=== PATIENT | male | born 1955 | race Caucasian/White ===

== ENCOUNTER 2018-08-14 06:21 | Inpatient (IN) ==
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
--- NOTE | 2018-07-08 12:13 | PAT Medication Instructions ---
Medication Instructions Date of Service July 08, 2018 Home Medications bupropion HCl [Wellbutrin XL] 150 mg PO QAM allopurinol 100 mg PO QAM hydrochlorothiazide 25 mg PO QAM hydrocodone-acetaminophen 1 tab PO Q6H PRN methylphenidate HCl 10 mg PO TID metoprolol tartrate 25 mg PO BID ropinirole [Requip] 0.5 mg PO HS PRN trazodone 50 mg PO HS Hold 24 hours prior to surgery ropinirole [Requip] 0.5 mg PO HS PRN Hold the morning of surgery hydrochlorothiazide 25 mg PO QAM methylphenidate HCl 10 mg PO TID Take morning of surgery Take the following medication the morning of surgery with a sip of water, OTHERWISE NOTHING TO EAT OR DRINK AFTER MIDNIGHT: bupropion HCl [Wellbutrin XL] 150 mg PO QAM allopurinol 100 mg PO QAM hydrocodone-acetaminophen 1 tab PO Q6H PRN (okay to take up to 4 hours prior to surgery if needed) metoprolol tartrate 25 mg PO BID Take evening before surgery hydrocodone-acetaminophen 1 tab PO Q6H PRN (if needed) methylphenidate HCl 10 mg PO TID metoprolol tartrate 25 mg PO BID trazodone 50 mg PO HS Other Notes If you have any questions please call us at [phone] or [phone] or [phone] or [phone]
--- NOTE | 2018-07-08 13:03 | XRay Report ---
XR chest Pre-admission PA/Lat CLINICAL HISTORY: Preoperative chest COMPARISON STUDY: 02/14/2010 FINDINGS: The cardiac and mediastinal contours remain stable. There are persistent areas of linear sc arring within the left midlung zone. There is possible bullous emphysema. There is no acute parenchym al consolidation. There are no pleural effusions. There is no failure.[ IMPRESSION: Stable scarring. No acute findings. Electronically signed by: Bert Armas M.D. 07/08/2018 1:02 PM
[2018-07-08 14:00] LABS: Basophils # (auto) 0.03 K/uL (0-0.2); Basophils % (auto) 0.3 %; Eosinophils # (auto) 0.34 K/uL (0-0.5); Eosinophils % (auto) 3.6 %; Hematocrit (blood only) 44.1 % (42-52); Hemoglobin 15.2 g/dL (14.0-18.0); Immature Granulocytes # (auto) 0.02 K/uL (0.00-0.02); Immature Granulocytes % (auto) 0.2 %; Lymphocytes # (auto) 2.62 K/uL (1.2-3.4); Lymphocytes % (auto) 27.9 %; Mean Corpuscular Hgb Conc 34.5 g/dL (32-36); Mean Platelet Volume 9.9 fL (7.4-10.4); Monocytes # (auto) 0.68 K/uL (0.11-0.59); Monocytes % (auto) 7.2 %; Neutrophils % (auto) 60.8 %; Platelet Count 216 K/uL (130-400); RDW Coefficient of Variation 12.6 % (11.5-14.5); RDW Standard Deviation 40.3 fL (36.4-46.3); Red Blood Count 5.13 M/uL (4.7-6.1); White Blood Count 9.39 K/uL (4.8-10.8)
[2018-07-08 14:08] LABS: Partial Thromboplastin Ratio 1.1; Partial Thromboplastin Time 27.9 Seconds (21.0-31.0); Prothrombin Time 10.1 Seconds (9.0-12.0)
[2018-07-08 14:23] LABS: BUN Creatinine Ratio 13.3 (10-20); C Reactive Protein 1.27 mg/dl (0-0.29); Calcium 9.3 mg/dl (8.5-10.1); Creatinine Clr Calc Pharmacy 90.5 ml/min; Est GFR (African American) 79.2; Est GFR (Non-African American) 68.3; Potassium 3.9 mmol/L (3.5-5.1)
--- NOTE | 2018-08-10 14:11 | History and Physical Report ---
DATE OF ADMISSION: 08/14/2018 CHIEF COMPLAINT: Left knee pain and discomfort. HISTORY OF PRESENT ILLNESS: A 63-year-old gentleman, now a little over 8 years out from right knee replacement, presents for surgical treatment to the left knee. He has had a fairly long history of left knee pain and discomfort that has gradually gotten worse over time. We have tried injection treatment, but it had only given him about a week of relief. He has pain all the time. It is worse with the more he walks. He describes global pain. He does get some swelling. His knee gives out intermittently. He is happy with his right knee and would like to have his left knee replaced. PAST MEDICAL HISTORY: Significant for 1. Hypertension. 2. Spontaneous pneumothorax in 1994. 3. Anxiety. 4. Obesity with a BMI of 41. PAST SURGICAL HISTORY: Previous surgeries include: 1. Lung surgery for pneumothorax in 1994. 2. Right total knee replacement in 2009. 3. Right hand repair for trauma. ALLERGIES: None. MEDICATIONS: Current medicines include 1. Bupropion 200 mg. 2. Hydrochlorothiazide 50 mg. 3. Metoprolol 25 mg. 4. Mobic 15 mg. 5. Ritalin 20 mg. 6. Hydrocodone 7.5/325. 7. Ropinirole 1 mg a day. SOCIAL HISTORY: A 63-year-old male, lives by himself. He is . He does not smoke. FAMILY HISTORY: Noncontributory. REVIEW OF SYSTEMS: Negative for diabetes, neurologic problem, vascular problem, bleeding disorders. No chest pain, no shortness of breath. No history of DVT or PE. PHYSICAL EXAMINATION: GENERAL: Examination reveals a healthy and pleasant middle-aged male, looks to be in pretty good health. HEENT: Benign. NECK: Supple. No lymphadenopathy. LUNGS: Clear to auscultation. CARDIOVASCULAR: Heart has a regular rate and rhythm. GASTROINTESTINAL: Abdomen is soft, nontender, nondistended. EXTREMITIES: Grossly neurovascularly intact except as follows: Examination of the left knee reveals patient walks with a significant antalgic gait. He has slight varus alignment to his knee, moderate size knee effusion. Tender over the medial joint line. Range of motion is 5 to 125 degrees. He is neurologically intact. Vascular status is intact. ACL is intact. IMAGING: X-rays of left knee reviewed. It shows advanced medial compartment DJD. He has complete loss of his medial joint space. He does have some patellofemoral as well as some lateral compartment disease with stress testing. ASSESSMENT: A 63-year-old male, 8-1/2 years out from right knee replacement, with advanced left knee degenerative joint disease. Very temporary response to injection treatment, he would like to proceed with left knee replacement. Based on his x-rays, I do not think he is a good candidate for partial knee replacement. PLAN: We will take him to the operating room and do a left total knee replacement. The risks and benefits of this procedure explained to the patient and include but not limited to DVT, PE, , infection, neurological injury, vascular injury, bleeding problem, pain, limited range of motion, stiffness, failure to relieve symptoms, incomplete relief of symptoms, need for further surgery in the future, fracture, leg length inequality, nerve palsy, etc. The patient understands and desires to proceed. Informed consent was obtained. He does live by himself, and we talked to him about his social situation. He is going to call the social media senior associate preoperative and develop plan for discharge. We did talk to him about holding his Mobic 10 days preop and taking his metoprolol/atenolol on the morning of surgery. He should limit his hydrocodone intake and will use something similar to that for postop pain control.
[~2018-08-14 06:21] MED LIST: ACETAMINOPHEN 500 MG TAB PO SCH; BUPIVACAINE LIPOSOME/PF 266 MG, BUPIVACAINE/EPINEPHRINE 50 ML, SODIUM CHLORIDE 0.9% 30 ... INFIL SCH; CEFAZOLIN 3000MG 65 ML IV SCH; FAMOTIDINE 20 MG TAB PO SCH; GABAPENTIN 300 MG x 2 PO SCH; LR 60ML/HR IV SCH; METOCLOPRAMIDE HCL 10 MG TABLET PO SCH; SCOPOLAMINE 1.5 MG TDSY TD SCH
[2018-08-14] MEDS ORDERED: TRANEXAMIC ACID 1,000 MG **IV Intra-op IV SCH (06:30)
[2018-08-14] MEDS ORDERED: BUPIVACAINE 0.5 % 5 MG/1 ML PF 10ML VIAL ONE (06:38)
[2018-08-14] MEDS ORDERED: ROPIVACAINE 0.5% 5 MG/ML 30 ML VIAL ONE (06:38)
[2018-08-14] MEDS ORDERED: EPINEPHrine INJ 1 MG/ML AMP ONE ×2 (06:38→09:12)
--- NOTE | 2018-08-14 07:00 | History & Physical Bridge Note ---
Date of Service August 14, 2018 History & Physical Bridge Note I have examined the patient, reviewed the History & Physical and in the interval since the performance of the History & Physical I have noted the following changes of clinical significance: no changes noted
[2018-08-14] MEDS: LR 500ML BOLUS, THEN 15ML/HR IV SCH ×7 (07:20→19:20)
[2018-08-14] MEDS ORDERED: fentaNYL citrate 100 MCG/2 ML VIAL IV PRN (07:27)
[2018-08-14] MEDS ORDERED: ATROPINE SULFATE 0.1 MG/ML 10ML SYR IV PRN (07:27)
[2018-08-14] MEDS ORDERED: ONDANSETRON INJ 2 MG/ML 2 ML VIAL IV PRN ×2 (07:27→12:59)
[2018-08-14] MEDS ORDERED: PHENYLEPHRINE 100MCG/ML 5ML SYR IV PRN (07:27)
[2018-08-14] MEDS ORDERED: MEPERIDINE HCL 25 MG/ML CARP IV PRN (07:27)
[2018-08-14] MEDS ORDERED: LABETALOL HCL IV 5 MG/ML 20ML IV PRN (07:27)
[2018-08-14] MEDS ORDERED: HYDROmorphone INJ 1 MG/ML SYRINGE IV PRN (07:27)
[2018-08-14] MEDS ORDERED: ePHEDrine sulfate 50 MG/ML AMP IV PRN (07:27)
[2018-08-14] MEDS ORDERED: MIDAZOLAM HCL 1 MG/ML 2ML VIAL ONE ×2 (08:03→09:40)
[2018-08-14] MEDS ORDERED: fentaNYL citrate 100 MCG/2 ML VIAL ONE ×3 (08:03→10:48)
[2018-08-14] MEDS ORDERED: SODIUM CHLORIDE 0.9% PF 50 ML VIAL ONE (09:10)
[2018-08-14] MEDS ORDERED: BACITRACIN INJ 50,000 UNIT VIAL ONE (09:10)
[2018-08-14] MEDS ORDERED: BUPIVACAINE 0.25% 30 ML VIAL ONE (09:11)
[2018-08-14] MEDS ORDERED: BUPIVACAINE LIPOSOME 1.3% 266 MG/20 ML VIAL INFIL ONE (09:11)
[2018-08-14] MEDS ORDERED: VANCOMYCIN HCL 1000MG/20ML VIAL ONE (09:12)
[2018-08-14] MEDS ORDERED: PROPOFOL IV EMULSION 10 MG/ML 20 ML VIAL IV ONE ×2 (09:44→10:19)
[2018-08-14] MEDS ORDERED: LIDOCAINE HCL 2% 2 ML VIAL/AMP(20MG/ML) INFIL ONE (09:44)
[2018-08-14] MEDS ORDERED: ONDANSETRON INJ 2 MG/ML 2 ML VIAL ONE (09:44)
--- NOTE | 2018-08-14 11:29 | Post Operative Brief Note ---
Immediate Post Op Note v1 Date of Surgery August 14, 2018 Pre & Post Diagnosis Operation Date: 08/14/18 09:05 Pre-Op Diagnosis: Left Knee Degenerative Joint Disease, Knee pain Post-Op Diagnosis: Left Knee Degenerative Joint Disease, Knee pain Procedure Operation Date: 08/14/18 09:05 Actual Procedures p Left Total Knee Replacement(Left) - Bharath Harrison MD Surgeon Bharath Harrison MD Gravity Meter Operator Noris, PAC Estimated Blood Loss 50 Findings Consistent with Post-Op Diagnosis Fluids 1500 cc Specimens Left Knee Drains Grigsby Catheter Anesthesia Type Spinal MAC Complications none Disposition Accompanied Patient To Recovery: No Disposition: Recovery Room
--- NOTE | 2018-08-14 12:10 | XRay Report ---
XR knee LT 2V routine CLINICAL HISTORY: Surgical Post Op DEGENERATIVE ARTHRITIS COMPARISON: Outside radiograph dated 07/08/2018 DISCUSSION: There are postsurgical changes of a total left knee arthroplasty and patellar resurfacing . The femoral and tibial components appear well seated. Overlying skin nicolasa are evident. There is air within the soft tissues consistent with recent surgery. IMPRESSION: Postsurgical changes of a total left knee arthroplasty Electronically signed by: Bert Armas M.D. 08/14/2018 12:09 PM
--- NOTE | 2018-08-14 12:20 | Operative Report ---
DATE OF OPERATION: 08/14/2018 SURGEON: Bharath Harrison MD LAYER OUT: KHRIS Rubin PREOPERATIVE DIAGNOSIS: Left knee degenerative joint disease. POSTOPERATIVE DIAGNOSIS: Left knee degenerative joint disease. PROCEDURE PERFORMED: Left cemented posterior stabilized total knee arthroplasty. COMPLICATIONS: None. ESTIMATED BLOOD LOSS: 50 mL. FLUID REPLACEMENT: 1500 mL crystalloid fluid replacement. TOURNIQUET TIME: 71 minutes at 300 mmHg. ANESTHESIA: Spinal with adductor canal block. DRAINS: None. SPECIMENS: Left knee sent for pathology. OPERATIVE INDICATIONS: The patient is a 63-year-old fairly active gentleman who has had a long history of knee problems. He underwent a right knee replacement about 8-1/2 years ago and has done well from this. Over the past several years, he has developed increased pain and discomfort in his left knee. He has been through extensive conservative treatment including medicines and injections which provided only temporary relief. X-rays showed medial compartment DJD. The patient elected to proceed with operative treatment. OPERATIVE FINDINGS: Operative findings revealed advanced grade 4 [id number] disease of the medial femoral condyle and medial tibial plateau. He has some focal grade 3 changes in the lateral side. Some moderate patellofemoral arthritis as well. He had a fairly large knee joint effusion with slight varus deformity to his knee. OPERATIVE IMPLANTS: Operative implants consisted of: 1. A Biomet Vanguard size 70 left posterior stabilized femoral component. 2. A Biomet size 75 tibial tray. 3. A 12 mm posterior stabilized polyethylene insert. 4. A 31 x 8 all poly patella. OPERATIVE PROCEDURE: The patient was taken to the operating room, identified and placed on the operating room table in supine position. All contact areas were appropriately padded. IV antibiotics provided by anesthesia team. A spinal anesthetic and adductor canal block had been provided in the holding area. Grigsby catheter was placed in sterile fashion. Left thigh tourniquet was then placed and the left lower extremity was then prepped and draped in usual sterile fashion. Left leg was elevated and exsanguinated with Esmarch and tourniquet was placed at 300 mmHg. An anterior approach of the left knee was then performed through a longitudinal incision centered over the patella. Sharp dissection was carried out through subcutaneous tissue down to the level of the extensor mechanism. A medial parapatellar arthrotomy incision was made. Some subperiosteal dissection was carried out medially. The fat pad resected from beneath the patellar tendon. Lateral patellofemoral ligament was released. The patella was everted and knee was flexed. The osteophytes were taken off the distal femur. The ACL and PCL were then released from the distal femur. The tibia subluxated anteriorly. The external tibial alignment jig was then placed in the anterior face of the tibia and adjusted 16 mm medially. Proximal tibial cut was made to remove about 2-3 mm of bone from the medial side. Tibia size was sized to a size 75. Attention was then drawn to the femur. The distal femur was entered with a sharp drill bit. Intramedullary canal was suctioned. A left 6-degree valgus cutting guide was placed. Distal femoral cutting block was pinned in place. Distal femoral cut was made to take an additional 3 mm of bone off the distal femur. The femur was then sized to a size 70. We did downsize this slightly. The AP cutting block was pinned parallel to the epicondylar axis, which was 6 degrees of external rotation. The anterior cut, anterior chamfer, posterior cut, posterior chamfer cuts were made. Box cutting guide was placed and adjusted slightly lateral and the box cut was made. The knee was flexed. The remnants of the medial and lateral menisci were excised. The osteophytes were taken off the posterior aspect of the femur. Trial femoral component was placed. Tibial tray was pinned in maximum external rotation and the drill and stem punch were used to create defect in proximal tibia for the tibial tray. The knee was then trialed and 12 mm insert fit most appropriately. Attention was then drawn to the patella. The patella was cleaned of all soft tissues. Patella thickness measured 22 mm in thickness, it was cut down to 14. It was sized to a size 31 patella. Lateral osteophyte was removed. Patella button was placed. Knee was taken through range of motion and patella tracked nicely with no thumbs test. Attention was then drawn toward placement of permanent components. All trial components were removed. A bone plug was placed in the distal femur to limit blood loss. A double batch of Palacos G cement was mixed. I did add an additional gram of vancomycin to the cement due to his history of hidradenitis and infected hair follicles. Of note, during the first cement preparation, the plant technical specialist forgot to add this second bottle of liquid, so we had to open up a new batch of cement in a new mixer and took an additional 10 minutes. A size 70 left posterior stabilized femoral component, size 75 tibial tray, 12 mm posterior stabilized polyethylene insert, and a 31 x 8 all poly patella then cemented in place. Knee was brought down into full extension until cement hardened. A final cement check was then performed. Pericapsular tissues were injected with a total of 100 mL of a combination of 20 mL of Exparel, 30 mL of normal saline, 50 mL of 0.25% Marcaine with epinephrine. The patient did receive 1 gram of tranexamic acid. The tourniquet was then let down for final tourniquet time of 71 minutes. Hemostasis was assured using electrocautery. Extensor mechanism was then closed with a combination of #1 PDS suture and #1 Vicryl suture in a [id number] fashion. Extensor mechanism was checked and found to be intact. Subcutaneous tissue was then closed with 2-0 Dexon suture in a buried interrupted fashion. Skin was closed with skin nicolasa. Leg was then cleaned and dried and a sterile dressing of Xeroform, 4 x 4's, sterile cast padding and Rosendo bandage were applied. The patient then transferred to the recovery room in stable condition. The patient tolerated the procedure well with no complications. All needle and sponge counts were correct at the end of the operation. I attest to the content of the Intraoperative Record and any orders documented therein. Any exception s are noted below.
--- NOTE | 2018-08-14 12:30 | Anesthesiology Progress Note ---
Date of Service August 14, 2018 Anesthesia Post Procedure Vital Signs Vital Signs: Temp Pulse Pulse Resp BP Pulse Ox 08/14/18 12:25 76 14 114/68 96 08/14/18 12:15 36.7 C 76 12 109/67 96 08/14/18 12:05 76 12 103/64 98 08/14/18 11:55 77 12 113/63 99 08/14/18 11:45 79 13 113/64 99 08/14/18 11:35 36.2 C L 80 14 110/69 98 08/14/18 07:35 36.7 C 71 20 128/92 95 Pain Intensity Left Knee: Pain Intensity: 0 Notes Mental Status: alert / awake / arousable Patient Amnestic to Procedure: Yes Nausea / Vomiting: adequately controlled Pain: adequately controlled Airway Patency, RR, SpO2: stable & adequate BP & HR: stable & adequate Hydration State: stable & adequate Neuraxial Anesthesia: was administered and sensory block is resolving Anesthetic Complications: no major complications apparent and Pt Satisfied with anesthetic care
[2018-08-14] MEDS ORDERED: METOCLOPRAMIDE HCL INJ 5 MG/ML 2 ML VIAL IV PRN (12:59)
[2018-08-14] MEDS ORDERED: BISACODYL 10 MG SUPP PR PRN (12:59)
[2018-08-14] MEDS ORDERED: HYDROmorphone INJ 0.5 MG/0.5 ML SYR IV PRN (12:59)
[2018-08-14] MEDS ORDERED: MAGNESIUM HYDROXIDE SUSP 30 ML UDC PO PRN (12:59)
[2018-08-14] MEDS ORDERED: TAMSULOSIN HCL 0.4 MG CAP PO PRN (12:59)
[2018-08-14] MEDS ORDERED: ALUMINUM/MAGNESIUM SUSP 30 ML UDC PO PRN (12:59)
[2018-08-14] MEDS ORDERED: ROPINIROLE HCL 0.25 MG TABLET PO PRN (12:59)
[2018-08-14] MEDS ORDERED: METHYLPHENIDATE HCL 10 MG TABLET PO SCH (14:00)
[2018-08-14] MEDS: SODIUM CHLORIDE 0.9% 1000ML 1,000 ML IV SCH ×2 (14:53→21:17)
[2018-08-14] MEDS: KETOROLAC 30 MG/ML VIAL IV SCH ×2 (14:53→19:31)
[2018-08-14] MEDS: ACETAMINOPHEN 500 MG TAB PO SCH ×2 (14:54→21:17)
[2018-08-14] MEDS ORDERED: INFLUENZA ADMINISTRATION CHARGE ONE (15:00)
[2018-08-14] MEDS ORDERED: INFLUENZA VIRUS QUAD VACCINE 0.5 ML SYR IM ONE (15:00)
[2018-08-14] MEDS: OXYCODONE HCL IR 5 MG TAB (IMMEDIATE RELEASE) PO PRN (16:12)
[2018-08-14] MEDS: CHECK SCOPOLAMINE PATCH PLACEMENT SCH (16:14)
[2018-08-14] MEDS ORDERED: Nursing to Pharmacy Communication ONE (17:06)
[2018-08-14] MEDS ORDERED: TRANEXAMIC ACID 1,000 MG in 0.9 % SODIUM CHLORIDE 100 ML IV SCH (17:30)
[2018-08-14] MEDS: CEFAZOLIN 2000MG 2,000 MG/15 ML SYR IV SCH (17:38)
[2018-08-14] MEDS: FERROUS GLUCONATE 324 MG TAB PO SCH (17:39)
[2018-08-14] MEDS: ASPIRIN 81 MG ECTAB PO SCH (21:17)
[2018-08-14] MEDS: DOCUSATE SODIUM 100 MG CAP PO SCH (21:17)
[2018-08-14] MEDS: TRAZODONE HCL 50 MG TAB PO SCH (21:17)
[2018-08-14] MEDS: METOPROLOL TARTRATE 25 MG TAB PO SCH (21:17)
[2018-08-14] MEDS: SENNA 8.6 MG TAB PO SCH (21:18)
[2018-08-14] MEDS: TAPENTADOL HCL ER 50 MG TABCR PO SCH (21:20)
--- NOTE | 2018-08-14 21:35 | Progress Note ---
DATE: 08/14/2018 SUBJECTIVE: A 63-year-old gentleman postop from a left knee replacement. He is doing pretty well. Not having much pain yet. Still pretty groggy from the surgery. OBJECTIVE: VITAL SIGNS: Temperature 36.3. Vital signs stable. PHYSICAL EXAMINATION: GENERAL: Reveals a pleasant, middle-aged male. He is lying in bed, looks quite comfortable. He is really pretty groggy and I have to arouse him, otherwise, he falls asleep. LUNGS: Clear to auscultation. HEART: Regular rate and rhythm. ABDOMEN: Soft, nontender, nondistended. EXTREMITIES: Grossly neurovascularly intact except as follows. Examination of the left leg reveals the leg to be well aligned. Dressing is clean, dry, and intact. He can dorsiflex and plantarflex his foot appropriately. He is neurologically intact. X-RAYS: X-ray of left knee from recovery room was reviewed. Shows cemented posterior stabilized total knee arthroplasty. Components looked to be in good position. No signs of problems. ASSESSMENT: A 63-year-old gentleman postop from a left knee replacement, doing pretty well. Pain is well controlled currently. PLAN: 1. DVT prophylaxis including thigh-high TEDs, SCDs, and aspirin twice daily. 2. PT/OT. Weight bear as tolerated. Left total knee protocol. 3. Pain control, doing pretty well with current pain regimen. 4. IV antibiotics x24 hours. 5. Disposition: He is hoping to be discharged to rehab. He lives by himself and will need some help. He will likely need either a rehab or retirement facility stay. We will get social media editor working on that in the morning.
[2018-08-15] MEDS: CEFAZOLIN 2000MG 2,000 MG/15 ML SYR IV SCH (02:46)
[2018-08-15] MEDS: KETOROLAC 30 MG/ML VIAL IV SCH ×4 (02:46→19:53)
[2018-08-15] MEDS: CHECK SCOPOLAMINE PATCH PLACEMENT SCH ×2 (02:47→07:45)
[2018-08-15] MEDS ORDERED: Nursing to Pharmacy Communication ONE (03:02)
[2018-08-15] MEDS: SODIUM CHLORIDE 0.9% 1000ML 1,000 ML IV SCH (04:05)
[2018-08-15] MEDS: METHYLPHENIDATE HCL 10 MG TABLET PO SCH ×3 (06:35→15:10)
[2018-08-15] MEDS: ACETAMINOPHEN 500 MG TAB PO SCH ×3 (07:46→23:49)
--- NOTE | 2018-08-15 07:53 | Progress Note ---
DATE: 08/15/2018 SUBJECTIVE: A 63-year-old gentleman postop day 1 from a left knee replacement. He is doing pretty well this morning. Pain is controlled. No chest pain or shortness of breath. Not feeling dizzy or lightheaded. OBJECTIVE: VITAL SIGNS: Temperature 36.6. Vital signs stable. GENERAL: Physical examination shows a pleasant, middle-aged male. Much more awake and alert this morning. EXTREMITIES: Examination of the left leg reveals the dressing to be clean, dry and intact. Calf is soft and supple. He can dorsiflex and plantarflex his foot appropriately. LABORATORY DATA: Labs are pending. ASSESSMENT: A 63-year-old gentleman postop day 1 from a left knee replacement, doing pretty well. His pain seems to be controlled. He is neurologically intact. PLAN: 1. DVT prophylaxis including thigh-high TEDs, SCDs, and aspirin twice a day. 2. PT/OT. Weight bear as tolerated. Left total knee protocol. 3. Pain control, doing well with current pain regimen. He has been on chronic narcotics which may make pain control bit more difficult. 4. Disposition: He is hoping to discharge to [facility] or likely [facility] facility depending on insurance approval. He lives by himself and will likely need some assistance for the first 2 weeks.
[2018-08-15 08:28] LABS: Hematocrit (blood only) 37.5 % (42-52); Hemoglobin 12.8 g/dL (14.0-18.0); Mean Corpuscular Hgb Conc 34.1 g/dL (32-36); Mean Corpuscular Volume 85.4 fL (80-100); Mean Platelet Volume 9.3 fL (7.4-10.4); Platelet Count 173 K/uL (130-400); RDW Coefficient of Variation 12.9 % (11.5-14.5); RDW Standard Deviation 39.8 fL (36.4-46.3); Red Blood Count 4.39 M/uL (4.7-6.1); White Blood Count 9.59 K/uL (4.8-10.8)
[2018-08-15] MEDS: TAPENTADOL HCL ER 50 MG TABCR PO SCH ×2 (08:47→20:00)
[2018-08-15] MEDS: FERROUS GLUCONATE 324 MG TAB PO SCH ×2 (08:47→17:12)
[2018-08-15] MEDS: BuPROPion XL 150 MG TABCR PO SCH (08:48)
[2018-08-15] MEDS: hydroCHLOROthiazide 25 MG TAB PO SCH (08:48)
[2018-08-15] MEDS: PANTOprazole 40 MG TAB PO SCH (08:48)
[2018-08-15] MEDS: METOPROLOL TARTRATE 25 MG TAB PO SCH ×2 (08:49→19:54)
[2018-08-15] MEDS: ASPIRIN 81 MG ECTAB PO SCH ×2 (08:49→19:56)
[2018-08-15] MEDS: MULTIVITAMIN TAB PO SCH (08:49)
[2018-08-15] MEDS: ALLOPURINOL 100 MG TAB PO SCH (08:49)
[2018-08-15] MEDS: DOCUSATE SODIUM 100 MG CAP PO SCH ×2 (08:49→19:55)
[2018-08-15 09:07] LABS: Calcium 8.1 mg/dl (8.5-10.1); Creatinine Clr Calc Pharmacy 98.7 ml/min; Est GFR (African American) 89.4; Est GFR (Non-African American) 77.1; Potassium 3.7 mmol/L (3.5-5.1)
--- NOTE | 2018-08-15 11:29 | Anesthesiology Progress Note ---
Date of Service August 15, 2018 Anesthesia Post Procedure Vital Signs Vital Signs: Temp Pulse Pulse Pulse Resp BP Pulse Ox 08/15/18 08:04 36.6 C 64 16 113/63 95 08/15/18 03:18 36.6 C 70 16 131/76 95 08/14/18 23:23 36.6 C 60 16 117/78 95 08/14/18 21:15 70 130/78 08/14/18 19:40 36.3 C L 55 L 16 125/75 94 08/14/18 15:38 36.4 C L 80 16 94/61 L 97 08/14/18 14:35 36.3 C L 72 16 127/83 08/14/18 13:38 36.5 C 76 17 110/72 95 08/14/18 13:09 36.5 C 73 17 116/72 96 08/14/18 12:35 36.6 C 79 16 103/68 96 08/14/18 12:25 76 14 114/68 96 08/14/18 12:15 36.7 C 76 12 109/67 96 08/14/18 12:05 76 12 103/64 98 08/14/18 11:55 77 12 113/63 99 08/14/18 11:45 79 13 113/64 99 08/14/18 11:35 36.2 C L 80 14 110/69 98 Pain Intensity Left Knee: Pain Intensity: 7 Notes Mental Status: alert / awake / arousable and participated in evaluation Patient Amnestic to Procedure: Yes Nausea / Vomiting: adequately controlled Pain: adequately controlled Airway Patency, RR, SpO2: stable & adequate Hydration State: stable & adequate Neuraxial Anesthesia: was administered and sensory block is resolving Anesthetic Complications: no major complications apparent and Pt Satisfied with anesthetic care
[2018-08-15] MEDS: SENNA 8.6 MG TAB PO SCH (19:55)
[2018-08-15] MEDS: TRAZODONE HCL 50 MG TAB PO SCH (19:56)
[2018-08-15] MEDS: OXYCODONE HCL IR 5 MG TAB (IMMEDIATE RELEASE) PO PRN (21:22)
[2018-08-16] MEDS: KETOROLAC 30 MG/ML VIAL IV SCH ×2 (01:16→07:07)
[2018-08-16] MEDS: OXYCODONE HCL IR 5 MG TAB (IMMEDIATE RELEASE) PO PRN ×5 (06:08→23:58)
[2018-08-16] MEDS: METHYLPHENIDATE HCL 10 MG TABLET PO SCH ×3 (06:08→15:24)
--- NOTE | 2018-08-16 07:40 | Progress Note ---
DATE: 08/16/2018 SUBJECTIVE: A 63-year-old gentleman postop day 2 from a left knee replacement. He is doing reasonably well. Pain has been reasonably well controlled. No chest pain or shortness of breath. Not feeling dizzy or lightheaded. OBJECTIVE: VITAL SIGNS: Temperature 36.8. Vital signs stable. GENERAL: Physical examination shows a pleasant, middle-aged male. He is lying in bed and doing heel prop. EXTREMITIES: Examination of the left leg reveals the dressing to be clean, dry and intact. Calf is soft and supple. He can dorsiflex and plantarflex his foot appropriately. ASSESSMENT: A 63-year-old gentleman postop day 2 from left knee replacement, doing reasonably well. PLAN: 1. DVT prophylaxis including thigh-high TEDs, SCDs, and aspirin twice a day. 2. PT/OT. Weight bear as tolerated. Left total knee protocol. 3. Pain control, doing okay with current pain regimen. 4. Disposition: Plan to discharge to [facility] or assisted facility depending on availability.
[2018-08-16] MEDS: ALLOPURINOL 100 MG TAB PO SCH (08:23)
[2018-08-16] MEDS: METOPROLOL TARTRATE 25 MG TAB PO SCH ×2 (08:23→20:43)
[2018-08-16] MEDS: TAPENTADOL HCL ER 50 MG TABCR PO SCH ×2 (08:23→20:44)
[2018-08-16] MEDS: FERROUS GLUCONATE 324 MG TAB PO SCH ×2 (08:23→18:34)
[2018-08-16] MEDS: ASPIRIN 81 MG ECTAB PO SCH ×2 (08:23→20:43)
[2018-08-16] MEDS: hydroCHLOROthiazide 25 MG TAB PO SCH (08:24)
[2018-08-16] MEDS: ACETAMINOPHEN 500 MG TAB PO SCH ×3 (08:24→23:59)
[2018-08-16] MEDS: DOCUSATE SODIUM 100 MG CAP PO SCH ×2 (08:24→20:43)
[2018-08-16] MEDS: BuPROPion XL 150 MG TABCR PO SCH (08:24)
[2018-08-16] MEDS: MULTIVITAMIN TAB PO SCH (08:25)
[2018-08-16] MEDS: PANTOprazole 40 MG TAB PO SCH (08:26)
[2018-08-16] MEDS: TRAZODONE HCL 50 MG TAB PO SCH (20:43)
[2018-08-16] MEDS: SENNA 8.6 MG TAB PO SCH (20:44)
[2018-08-17] MEDS: OXYCODONE HCL IR 5 MG TAB (IMMEDIATE RELEASE) PO PRN ×2 (04:05→08:02)
[2018-08-17] MEDS: METHYLPHENIDATE HCL 10 MG TABLET PO SCH ×2 (06:02→13:00)
[2018-08-17] MEDS: ACETAMINOPHEN 500 MG TAB PO SCH (08:05)
[2018-08-17] MEDS: TAPENTADOL HCL ER 50 MG TABCR PO SCH (08:08)
--- NOTE | 2018-08-17 08:37 | Progress Note ---
DATE: 08/17/2018 SUBJECTIVE: A 63-year-old gentleman status post a left knee replacement. He is now postop day 3. Doing reasonably well. Just waiting for placement. He would like a little bit better pain control. No chest pain or shortness of breath. OBJECTIVE: VITAL SIGNS: Temperature is 36.6. Vital signs stable. GENERAL: Physical examination shows a pleasant, middle-aged male. He is sitting up in his bedside chair, looks pretty comfortable. EXTREMITIES: Examination of the left leg reveals the dressing to be clean, dry, and intact. He can dorsiflex and plantarflex his foot appropriately. He is neurologically intact. ASSESSMENT: A 63-year-old gentleman postop day 3 from a left knee replacement, doing pretty well. Really just waiting for placement. A little bit difficulty with pain control due to his chronic narcotic use. PLAN: 1. DVT prophylaxis including thigh-high TEDs, SCDs, and aspirin twice a day. 2. PT/OT. Weight bear as tolerated. Left total knee protocol. 3. Pain control. We are going to change him from the oxycodone to Dilaudid. We will see how he does with that and he will need to take one or the other, but cannot take both. 4. Disposition: We are just waiting for bed availability at [facility].
[2018-08-17] MEDS: hydroCHLOROthiazide 25 MG TAB PO SCH (09:06)
[2018-08-17] MEDS: FERROUS GLUCONATE 324 MG TAB PO SCH (09:06)
[2018-08-17] MEDS: ALLOPURINOL 100 MG TAB PO SCH (09:06)
[2018-08-17] MEDS: DOCUSATE SODIUM 100 MG CAP PO SCH (09:06)
[2018-08-17] MEDS: METOPROLOL TARTRATE 25 MG TAB PO SCH (09:07)
[2018-08-17] MEDS: BuPROPion XL 150 MG TABCR PO SCH (09:07)
[2018-08-17] MEDS: MULTIVITAMIN TAB PO SCH (09:07)
[2018-08-17] MEDS: PANTOprazole 40 MG TAB PO SCH (09:07)
[2018-08-17] MEDS: ASPIRIN 81 MG ECTAB PO SCH (09:07)
[2018-08-17] MEDS: HYDROmorphone HCL 2 MG TAB PO PRN ×2 (10:12→14:12)
--- NOTE | 2018-08-20 15:18 | Discharge Summary ---
ADMITTING PHYSICIAN AND SURGEON: Dr. Bharath Harrison. ADMITTING DIAGNOSIS: Left knee degenerative joint disease. SURGERY PERFORMED: Left total knee arthroplasty. SECONDARY DIAGNOSES: Hypertension, spontaneous pneumothorax, anxiety, obesity. CONSULTS: None obtained. HISTORY AND PHYSICAL EXAMINATION: Well documented in the patient's chart. HOSPITAL COURSE: The patient was admitted on 08/14/2018 and underwent total knee arthroplasty, tolerated the procedure well. There were no complications. He was transferred to the PACU postoperatively and later to the orthopedic floor for further care. He was given Ancef for antibiotic prophylaxis, SVETLANA stockings, SCDs and aspirin for DVT prophylaxis. Hemoglobin, hematocrit and vital signs were monitored during his hospital stay and remained stable. Developed some mild postoperative anemia with a hemoglobin down to 12.8. Did not require blood transfusions. There were no complications. By postoperative day 3 he was tolerating a regular diet, pain was controlled with oral pain medicine. He is participating in physical therapy. On postop day 3, he was discharged home, set up with home health services, given printed discharge instructions including new prescriptions for extra strength Tylenol, aspirin, hydromorphone and oxycodone. Continue his home medications with the exception of hydrocodone/acetaminophen, which he was told to stop. Continue physical therapy, weightbearing as tolerated, VSETLANA stockings. Follow up approximately 2 weeks postoperatively or sooner if there are any problems or concerns.
== END 2018-08-17 15:05 | disposition home health service (06) | DRG 470 ==
LOC: ASU 06:21 → 3E 11:35

== ENCOUNTER 2021-12-19 18:42 | Inpatient (IN) ==
[2021-12-19] MEDS: SODIUM CHLORIDE 0.9% 500 ML IV SCH (19:26)
[2021-12-19 19:54] LABS: BUN Creatinine Ratio 16.5 (10-20); Bilirubin Direct 0.2 mg/dl (0-0.2); Calcium 9.4 mg/dl (8.5-10.1); Creatinine Clr Calc Pharmacy 81.4 ml/min; Est GFR (African American) 77.5 ml/min; Est GFR (Non-African American) 66.9 ml/min; Potassium 3.7 mmol/L (3.5-5.1); Total Protein 6.7 gm/dl (6.0-8.3)
[2021-12-19 19:56] LABS: Basophils # (auto) 0.02 K/uL (0-0.2); Basophils % (auto) 0.2 %; Eosinophils # (auto) 0.18 K/uL (0-0.5); Eosinophils % (auto) 2.1 %; Hemoglobin 13.9 g/dL (14.0-18.0); Immature Granulocytes # (auto) 0.01 K/uL (0.00-0.02); Immature Granulocytes % (auto) 0.1 %; Lymphocytes # (auto) 1.91 K/uL (1.2-3.4); Lymphocytes % (auto) 22.7 %; Mean Corpuscular Hgb Conc 33.9 g/dL (32-36); Mean Corpuscular Volume 85.4 fL (80-100); Mean Platelet Volume 10.2 fL (7.4-10.4); Monocytes # (auto) 0.51 K/uL (0.11-0.59); Monocytes % (auto) 6.1 %; Neutrophils # (auto) 5.79 K/uL (1.4-6.5); Neutrophils % (auto) 68.8 %; Platelet Count 219 K/uL (130-400); RDW Coefficient of Variation 13.3 % (11.5-14.5); RDW Standard Deviation 41.5 fL (36.4-46.3); White Blood Count 8.42 K/uL (4.8-10.8)
[2021-12-19] MEDS ORDERED: ONDANSETRON INJ 2 MG/ML 2 ML VIAL IV STA (20:01)
--- NOTE | 2021-12-19 20:07 | XRay Report ---
XR abdomen 2V w PA chest CLINICAL HISTORY: abd pain c diff TECHNIQUE: 2 views of the abdomen were obtained. A single view of the chest was obtained. Comparison: Comparison is made to chest radiograph 07/08/2018 FINDINGS: No lines and tubes are seen. The cardiomediastinal silhouette is normal. The lungs are clear. No evid ence of pleural effusion or pneumothorax. The osseous structures are grossly unremarkable. The bowel gas pattern is nonobstructive. A moderate amount of stool is noted within the large bowel. IMPRESSION: Nonobstructive bowel gas pattern. ACT 112: Negative or not required by law. Electronically signed by: Cornell Garces M.D. 12/19/2021 8:06 PM
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
[2021-12-19 22:04] LABS: Appearance Urine Clear (Clear); Bilirubin Urine Negative (Negative); Blood Urine Negative (Negative); Color Urine Yellow; Glucose Urine UA Negative (Negative); Ketones Urine Negative (Negative); Leukocyte Esterase Urine Negative (Negative); Nitrite Urine Negative (Negative); Protein Urine Negative (Negative); Specific Gravity Urine 1.008 (1.000-1.030); Urobilinogen Urine Negative (Negative); pH Urine 7.5 (4.5-7.5)
[2021-12-19] MEDS ORDERED: OPTIRAY 320 100ml IV ONE (22:14)
[2021-12-20] MEDS: SODIUM CHLORIDE 0.9% 500 ML IV SCH ×2 (00:03→10:51)
[2021-12-20] MEDS ORDERED: ACETAMINOPHEN 325 MG TAB PO PRN (04:12)
[2021-12-20] MEDS ORDERED: NITROGLYCERIN SL 0.4 MG/TAB TAB SL SCH (04:12)
[2021-12-20] MEDS ORDERED: NITROGLYCERIN SL 0.4 MG/TAB TAB SL PRN (04:12)
[2021-12-20] MEDS ORDERED: MoRPHine SULFATE 4 MG/ML 1 ML CARP\\VIAL IV PRN (04:12)
[2021-12-20] MEDS: D5W AND NSS 1,000 ML IV SCH ×2 (04:49→14:20)
[2021-12-20] MEDS ORDERED: traZODone HCL 50 MG TAB PO PRN (04:55)
--- NOTE | 2021-12-20 08:03 | History and Physical Report ---
DATE OF ADMISSION: . CHIEF COMPLAINT: Abdominal pain. HISTORY OF PRESENT ILLNESS: A 66-year-old male with past medical history significant for hyperlipidemia, gout, hypertension, obesity, restless legs syndrome, chronic pain, lumbar radiculopathy, psoriasis, depression, attention deficit disorder comes with abdominal pain. The patient states since last one and half months, he is having abdominal pain. Diagnosed of C. diff, and he had his first course of antibiotics for C. diff, then he restarted second course 11 days ago with vancomycin taper. He says he was also prescribed metronidazole, but he says he was told to take metronidazole if first antibiotic is not working. Initially, he had some blood in the stool, but that has resolved. He is having loose stools once daily, but he is having a lot of abdominal pain, bloating, nausea, and not able to eat anything. Loss of appetite. He says he lost about 50 pounds since last one and a half months. He thinks something else is going on, so he came to the hospital to get evaluated. Denies any fever or chills. No chest pain, no shortness of breath. Currently, no blood in stools. Normal bladder movements. No swelling in the legs. Ambulating okay. He has had some brain fog because he thinks he is not eating much. Has some dizziness. No headache, no blurred visions, no earache, no runny nose, no sore throat, no difficulty swallowing. Currently in the ER, he had an episode of bradycardia, but looks like monitor might not be picking up some of the beats. ALLERGIES: No known drug allergies. PAST MEDICAL HISTORY: As mentioned above. PAST SURGICAL HISTORY: Right total knee arthroplasty, cardiac stent placement, colonoscopy, EGDs, incision and drainage of perirectal abscess, tonsillectomy and adenoidectomy. MEDICATIONS: The patient is on allopurinol 300 mg p.o. daily, aspirin 81 mg p.o. daily, atorvastatin 80 mg p.o. daily, hydrochlorothiazide 25 mg p.o. a.m., hydrocodone/acetaminophen 1 tablet p.o. q. 8 hours p.r.n., isosorbide mononitrate 30 mg p.o. a.m., lactobacillus 1 tablet p.o. daily, lisinopril 2.5 mg p.o. daily, meloxicam 15 mg p.o. daily, methylphenidate 10 mg p.o. at 4:00 p.m., methylphenidate 20 mg daily a.m. and noon, metoprolol succinate 25 mg p.o. daily, nitroglycerin 0.4 mg sublingual p.r.n., Zofran 4 mg q. 8 hours p.r.n., trazodone 150 mg p.o. at bedtime p.r.n., vancomycin tapering course for recurrent C. diff. FAMILY HISTORY: Significant for father had skin cancer, sister has colon cancer, paternal grandmother had skin cancer. SOCIAL HISTORY: . Quit smoking, snuffs tobacco. Alcohol occasional. No drug use. REVIEW OF SYSTEMS: As per HPI. Rest of review of systems is negative. PHYSICAL EXAMINATION: GENERAL: The patient is of moderate build, not in acute distress. VITAL SIGNS: Temperature 36.5, pulse 60, respiratory rate 18, blood pressure 134/78, oxygen 93% on room air. HEENT: Pupils equal, round and reactive to light. Oral mucosa moist. NECK: No JVD, no neck masses. CARDIOVASCULAR: S1 and S2 heard. Regular rate and rhythm. No murmur, no gallop. RESPIRATORY SYSTEM: Normal AP diameter. No accessory muscle use. No wheezing, no crackles. ABDOMEN: Soft, diffuse tenderness present. Guarding present, no distention. CENTRAL NERVOUS SYSTEM: Cranial nerves II-XII grossly intact, nonfocal. EXTREMITIES: No edema, no erythema. LABORATORY DATA: WBC 8.4, hemoglobin 13.9, hematocrit 41, platelets 219. sodium 139, potassium 3.7, chloride 101, bicarbonate 31, BUN 19, creatinine 1.1, serum glucose 120. Lactate 0.8, calcium 9.4, magnesium 1.7, total bilirubin 1, direct bilirubin 0.2, AST 19, ALT 25, alkaline phosphatase 90. Troponin I high sensitivity 6, lipase 23. TSH 0.5. Urinalysis negative. SARS-CoV-2 RNA negative. IMAGING DATA: chest and abdominal x-ray, nonobstructive bowel gas pattern. CT of abdomen and pelvis with contrast, on preliminary report, no obvious acute findings. ASSESSMENT AND PLAN: This 66-year-old male presents with ongoing abdominal pain and poor appetite and recurrent C. diff. 1. Abdominal pain, poor appetite, lost weight, C. diff, on long vancomycin p.o. taper: Today is the 11th day of second course of vancomycin. CT of abdomen, no obvious findings,will follow final report. The patient says he is not eating much, abdominal pain is not getting better. Will consult GI. Will keep him on full liquid diet, IV fluids. Monitor in the hospital. 2. Bradycardia: heart rate down in the ER, but looks like monitor might not capturin beats.. EKG, sinus rhythm with frequent PVCs at a rate of 73, so we will monitor in the [facility] tele. If any concern, will consult Cardiology. 3. History of coronary artery disease, status post stent: On aspirin, statin, and metoprolol succinate and Imdur.. 4. History of gout: On allopurinol. 5. Hypertension: Continue hydrochlorothiazide, Imdur, lisinopril, and metoprolol. Monitor the blood pressure. 6. Attention deficit hyperactivity disorder: Continue methylphenidate. 7. Hyperlipidemia: Continue statin. 8. Deep venous thrombosis prophylaxis: Lovenox. DISPOSITION: Closely monitor in the [facility] tele. PT/OT prior to discharge. Social service to help with discharge planning. Job ID: [id number] HEALTH SYSTEMAngela
[2021-12-20] MEDS: allopurinoL 300 MG TAB PO SCH (08:21)
[2021-12-20] MEDS: ISOSORBIDE MONO EXTENDED REL 30 MG TABCR PO SCH (08:21)
[2021-12-20] MEDS: ASPIRIN 81 MG ECTAB PO SCH (08:21)
[2021-12-20] MEDS: METOPROLOL SUCC 25MG EXT REL TAB PO SCH (08:22)
[2021-12-20] MEDS: hydroCHLOROthiazide 25 MG TAB PO SCH (08:22)
[2021-12-20] MEDS: lisinopril 2.5 MG TAB PO SCH (08:22)
[2021-12-20] MEDS: RASPBERRY SYRUP 5 ML UDP PO SCH ×2 (08:23→20:34)
[2021-12-20] MEDS: ENOXAPARIN INJ 40 MG/0.4 ML SYR SQ SCH (08:23)
[2021-12-20] MEDS: VANCOMYCIN HCL 125 MG/2.5ML SOLN PO SCH ×2 (08:23→20:35)
[2021-12-20] MEDS: ADVANCED PROBIOTIC 1250 MG CAPSULE PO SCH (08:24)
[2021-12-20 08:49] LABS: Basophils # (auto) 0.02 K/uL (0-0.2); Basophils % (auto) 0.3 %; Eosinophils # (auto) 0.34 K/uL (0-0.5); Eosinophils % (auto) 4.3 %; Hematocrit (blood only) 41.4 % (42-52); Hemoglobin 14.2 g/dL (14.0-18.0); Immature Granulocytes # (auto) 0.01 K/uL (0.00-0.02); Immature Granulocytes % (auto) 0.1 %; Lymphocytes # (auto) 2.37 K/uL (1.2-3.4); Lymphocytes % (auto) 29.8 %; Mean Corpuscular Hemoglobin 30.3 pg (25-34); Mean Corpuscular Hgb Conc 34.3 g/dL (32-36); Mean Corpuscular Volume 88.5 fL (80-100); Monocytes % (auto) 6.3 %; Neutrophils # (auto) 4.71 K/uL (1.4-6.5); Neutrophils % (auto) 59.2 %; Platelet Count 191 K/uL (130-400); RDW Coefficient of Variation 13.4 % (11.5-14.5); RDW Standard Deviation 43.5 fL (36.4-46.3); Red Blood Count 4.68 M/uL (4.7-6.1); White Blood Count 7.95 K/uL (4.8-10.8)
--- NOTE | 2021-12-20 09:00 | CT Scan Report ---
CT SCAN OF THE ABDOMEN AND PELVIS WITH IV CONTRAST CLINICAL HISTORY: Generalized abdominal pain. Bloating. COMPARISON STUDY: Pelvic CT dated 07/25/2015. TECHNIQUE: Following the IV administration of 94 cc of Optiray 320, CT scan of the abdomen and pelvi s is performed from the lung bases to the proximal femora. Images are reviewed in the axial, sagittal , and coronal planes. IV contrast was administered without complication. A dose lowering technique wa s utilized adhering to the principles of ALARA. CT DOSE: 934.04 mGy.cm FINDINGS: Lung bases: The heart is normal in size and without pericardial effusion. The coronary arteries are d ensely calcified. There is a tiny hiatal hernia. There is a punctate calcified granuloma in the left lower lobe. There are tiny nodules versus AVM is seen in the right lower lobe in image #25 and at the left lung base on image #63. The lung bases are otherwise clear noting dependent atelectasis. Liver: The contrast-enhanced liver is normal in size, contour, and attenuation. There is no intrahepa tic biliary ductal dilatation. The hepatic veins and portal veins are patent. Gallbladder: Unremarkable. Spleen: Normal in size and attenuation. Pancreas: Unremarkable. Adrenal glands: Unremarkable. Kidneys: The contrast enhanced kidneys demonstrate mild cortical atrophy and are without hydronephros is. The kidneys enhance symmetrically. A 1.8 cm cyst is seen in the left lower pole. Abdominal vasculature: The abdominal aorta is normal in course and caliber noting mild to moderate at herosclerotic calcification. Bowel: There is mild to moderate colonic fecal retention. No bowel obstruction is identified. The elke endix is well-visualized and normal. Peritoneum: There is no intraperitoneal free air or abdominal ascites. Lymphadenopathy: None. Pelvic viscera: The prostate gland is mildly enlarged and heterogeneous noting median lobe hypertroph y. The bladder wall is thickened and trabeculated indicating chronic outlet obstruction. Skeletal structures: No lytic or blastic lesions are seen. There is mild lumbosacral spondylosis. IMPRESSION: 1. No acute infectious or inflammatory findings are identified in the abdomen or pelvis. 2. Prostatomegaly with evidence of chronic bladder outlet obstruction. 3. Advanced coronary artery calcification. 4. Additional findings as above. ACT 112: Negative or not required by law. Electronically signed by: Justin Evans M.D. 12/20/2021 8:57 AM
[2021-12-20] MEDS: METHYLPHENIDATE HCL 10 MG TABLET PO SCH ×3 (09:02→16:26)
[2021-12-20 09:18] LABS: BUN Creatinine Ratio 13.4 (10-20); Calcium 8.9 mg/dl (8.5-10.1); Creatinine Clr Calc Pharmacy 78.2 ml/min; Est GFR (African American) 74.4 ml/min; Est GFR (Non-African American) 64.2 ml/min; Magnesium 1.8 mg/dl (1.7-2.4); Potassium 3.8 mmol/L (3.5-5.1)
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
--- NOTE | 2021-12-20 10:04 | Electrocardiogram Report ---
Test Reason : Blood Pressure : / mmHG Vent. Rate : 073 BPM Atrial Rate : 073 BPM P-R Int : 196 ms QRS Dur : 102 ms QT Int : 406 ms P-R-T Axes : 055 -33 063 degrees QTc Int : 447 ms Sinus rhythm with frequent Premature ventricular complexes Left axis deviation Low voltage QRS Poor R wave progression, consider anterior NM vs. lead placement vs. LVH Abnormal ECG When compared with ECG of 08-JUL-2018 12:29, Premature ventricular complexes are now Present Confirmed by Rancho Lafleur ([id number]) on 12/20/2021 10:04:41 AM Referred By: Rachelle Coronel Confirmed By:Lucas Lafleur
[2021-12-20] MEDS: ATORVASTATIN 40 MG TAB PO SCH (11:14)
[2021-12-20] MEDS: HYDROCODONE/ACETAMOPHEN 5/325MG TAB PO PRN (11:14)
--- NOTE | 2021-12-20 11:48 | Electrocardiogram Report ---
Test Reason : Blood Pressure : / mmHG Vent. Rate : 061 BPM Atrial Rate : 061 BPM P-R Int : 208 ms QRS Dur : 100 ms QT Int : 428 ms P-R-T Axes : 012 -37 041 degrees QTc Int : 430 ms Normal sinus rhythm with 1st degree AV block Left axis deviation Low voltage QRS Abnormal ECG When compared with ECG of 19-DEC-2021 20:27, (unconfirmed) Premature ventricular complexes are no longer Present Confirmed by Rancho Lafleur ([id number]) on 12/20/2021 11:47:54 AM Referred By: Rachelle Coronel Confirmed By:Lucas Lafleur
[2021-12-20] MEDS: ONDANSETRON INJ 2 MG/ML 2 ML VIAL IV PRN (14:01)
[2021-12-20] MEDS: DICYCLOMINE HCL 10 MG CAP PO SCH (17:55)
[2021-12-20] MEDS: traZODone HCL 100 MG TAB PO PRN (22:06)
--- NOTE | 2021-12-20 23:41 | Communication Note ---
Date of Service: December 20, 2021 Pt was seen and examined for abdominal pain and Cdiff. Lying in bed continues to have cramping abdominal pain. His diarrhea seems to resolve because he only had one episode of loose stool today. He said that the pain med does not seem to last long. CT abd/pelvis showed no acute infectious or inflammatory findings are identified in the abdomen or pelvis. Prostatomegaly with evidence of chronic bladder outlet obstruction. Gastro on board recommended to continue Vanco taper course. Will add Bentyl for the abdominal cramp. Continue diet as tolerated. Continue monitor closely. MD Gill
[2021-12-21] MEDS: D5W AND NSS 1,000 ML IV SCH ×3 (00:26→17:51)
[2021-12-21] MEDS: DICYCLOMINE HCL 10 MG CAP PO SCH ×2 (05:43→16:35)
[2021-12-21] MEDS: METOPROLOL SUCC 25MG EXT REL TAB PO SCH (08:21)
[2021-12-21] MEDS: ENOXAPARIN INJ 40 MG/0.4 ML SYR SQ SCH ×2 (08:21→08:27)
[2021-12-21] MEDS: ADVANCED PROBIOTIC 1250 MG CAPSULE PO SCH (08:22)
[2021-12-21] MEDS: METHYLPHENIDATE HCL 10 MG TABLET PO SCH ×3 (08:22→16:34)
[2021-12-21] MEDS: allopurinoL 300 MG TAB PO SCH (08:22)
[2021-12-21] MEDS: hydroCHLOROthiazide 25 MG TAB PO SCH (08:22)
[2021-12-21] MEDS: ASPIRIN 81 MG ECTAB PO SCH (08:22)
[2021-12-21] MEDS: ISOSORBIDE MONO EXTENDED REL 30 MG TABCR PO SCH (08:23)
[2021-12-21] MEDS: ATORVASTATIN 40 MG TAB PO SCH (08:23)
[2021-12-21] MEDS: lisinopril 2.5 MG TAB PO SCH (08:23)
[2021-12-21] MEDS: RASPBERRY SYRUP 5 ML UDP PO SCH ×2 (09:03→20:06)
[2021-12-21] MEDS: VANCOMYCIN HCL 125 MG/2.5ML SOLN PO SCH ×2 (09:04→20:06)
--- NOTE | 2021-12-21 19:37 | Hospitalist Progress Note ---
Date of Service December 21, 2021 Assessment & Plan (1) Abdominal pain: (2) C. difficile colitis: Plan: Present on admission with diffuse abdominal pain Ct abd/pelvis showed no acute infectious or inflammatory findings are identified in the abdomen or pelvis. KUB showed Nonobstructive bowel gas pattern. Gastro on board recommended outpatient EGD and colonoscopy Case discussed with gastro that recommended to continue taper Vanco course Will add Bentyl 10mg BID Continue Liquid diet Continue pain control . Bradycardia: Asymptomatic Consider to decrease metoprolol to 12.5 mg daily Continue monitor CAD status post stent Continue aspirin, statin, and metoprolol succinate and Imdur.. History of gout Continue allopurinol. Hypertension BP stable Continue hydrochlorothiazide, Imdur, lisinopril, and metoprolol. ADHD Continue methylphenidate. Hyperlipidemia Continue statin. DVT px Continue Lovenox. Code status Full code Admission and Anticipated Discharge Date Admission Date: December 20, 2021 Subjective Pt was seen and examined for follow up of abdominal pain Lying in bed with no acute distress Pt said that abdominal pain slightly improves He said that his stool is soft Denies any chest pain, N/V, palpitation and SOB Review of Systems Review of Systems: All systems reviewed & are unremarkable except as noted in Subjective Physical Exam Physical Exam: General- No acute distress Head- atraumatic Eyes- PERRL, EOMI, ENT- oropharynx clear Neck- supple, no JVD Lungs- clear to auscultation Heart- regular rhythm; no murmur Abdomen- normal bowel sounds, +tenderness Extremities- no calf tenderness Neuro- alert, oriented x 3; PERRL, EOMI; no facial palsy; no dysarthria Skin- warm & dry Results & Data Results & Data ([facility]) Vital Signs (Past 12 Hours) Vital Signs Temp Pulse Pulse Resp BP Pulse Ox 12/21/21 16:14 86 12/21/21 11:20 36.5 C 67 18 138/86 99 12/21/21 08:25 62 126/64 (1) Abdominal pain Abdominal location: unspecified location Qualified Code(s): R10.9 - Unspecified abdominal pain
[2021-12-22] MEDS: D5W AND NSS 1,000 ML IV SCH ×2 (03:27→12:42)
[2021-12-22] MEDS: DICYCLOMINE HCL 10 MG CAP PO SCH ×3 (05:48→21:57)
[2021-12-22] MEDS: hydroCHLOROthiazide 25 MG TAB PO SCH (09:20)
[2021-12-22] MEDS: ENOXAPARIN INJ 40 MG/0.4 ML SYR SQ SCH ×2 (09:20)
[2021-12-22] MEDS: ASPIRIN 81 MG ECTAB PO SCH (09:20)
[2021-12-22] MEDS: ISOSORBIDE MONO EXTENDED REL 30 MG TABCR PO SCH (09:20)
[2021-12-22] MEDS: RASPBERRY SYRUP 5 ML UDP PO SCH ×2 (09:21→21:57)
[2021-12-22] MEDS: lisinopril 2.5 MG TAB PO SCH (09:21)
[2021-12-22] MEDS: allopurinoL 300 MG TAB PO SCH (09:22)
[2021-12-22] MEDS: ADVANCED PROBIOTIC 1250 MG CAPSULE PO SCH (09:22)
[2021-12-22] MEDS: METOPROLOL SUCC 25MG EXT REL TAB PO SCH (09:22)
[2021-12-22] MEDS: METHYLPHENIDATE HCL 10 MG TABLET PO SCH ×3 (09:23→16:12)
[2021-12-22] MEDS: VANCOMYCIN HCL 125 MG/2.5ML SOLN PO SCH ×2 (09:23→22:05)
[2021-12-22] MEDS: HYDROCODONE/ACETAMOPHEN 5/325MG TAB PO PRN ×2 (09:30→21:55)
[2021-12-22] MEDS: ONDANSETRON INJ 2 MG/ML 2 ML VIAL IV PRN ×2 (09:30→21:56)
[2021-12-22] MEDS: ATORVASTATIN 40 MG TAB PO SCH (12:23)
[2021-12-22] MEDS: traZODone HCL 100 MG TAB PO PRN (21:58)
--- NOTE | 2021-12-23 02:14 | Hospitalist Progress Note ---
Date of Service December 22, 2021 Assessment & Plan (1) Abdominal pain: (2) C. difficile colitis: Plan: Present on admission with diffuse abdominal pain Ct abd/pelvis showed no acute infectious or inflammatory findings are identified in the abdomen or pelvis. KUB showed Nonobstructive bowel gas pattern. Gastro on board recommended outpatient EGD and colonoscopy Case discussed with gastro that recommended to continue taper Vanco course Bentyl increased to 10mg TID diet advanced to low fiber as tolerated Continue pain control . Bradycardia: Asymptomatic Consider to decrease metoprolol to 12.5 mg daily if continue bradycardia Continue monitor CAD status post stent Continue aspirin, statin, and metoprolol succinate and Imdur.. History of gout Continue allopurinol. Hypertension BP stable Continue hydrochlorothiazide, Imdur, lisinopril, and metoprolol. ADHD Continue methylphenidate. Hyperlipidemia Continue statin. DVT px Continue Lovenox. Code status Full code Admission and Anticipated Discharge Date Admission Date: December 20, 2021 Subjective Pt was seen and examined for follow up of abdominal pain Lying in bed with no acute distress Continue to have abdominal pain that improves with the pain med Denies any chest pain, N/V, palpitation and SOB Review of Systems Review of Systems: All systems reviewed & are unremarkable except as noted in Subjective Physical Exam Physical Exam: General- No acute distress Head- atraumatic Eyes- PERRL, EOMI, ENT- oropharynx clear Neck- supple, no JVD Lungs- clear to auscultation Heart- regular rhythm; no murmur Abdomen- normal bowel sounds, +tenderness Extremities- no calf tenderness Neuro- alert, oriented x 3; PERRL, EOMI; no facial palsy; no dysarthria Skin- warm & dry Results & Data Results & Data ([facility]) Vital Signs (Past 12 Hours) Vital Signs Temp Pulse Pulse Resp BP BP Pulse Ox 12/22/21 23:14 72 12/22/21 23:07 36.5 C 53 L 18 144/69 H 94 12/22/21 19:22 36.5 C 63 18 116/72 98 12/22/21 14:48 36.8 C 49 L 18 166/70 H 98 12/22/21 14:25 55 L (1) Abdominal pain Abdominal location: unspecified location Qualified Code(s): R10.9 - Unspecified abdominal pain
[2021-12-23] MEDS: ASPIRIN 81 MG ECTAB PO SCH (08:47)
[2021-12-23] MEDS: ADVANCED PROBIOTIC 1250 MG CAPSULE PO SCH (08:47)
[2021-12-23] MEDS: allopurinoL 300 MG TAB PO SCH (08:47)
[2021-12-23] MEDS: ISOSORBIDE MONO EXTENDED REL 30 MG TABCR PO SCH (08:47)
[2021-12-23] MEDS: ATORVASTATIN 40 MG TAB PO SCH (08:47)
[2021-12-23] MEDS: DICYCLOMINE HCL 10 MG CAP PO SCH ×2 (08:47→14:16)
[2021-12-23] MEDS: hydroCHLOROthiazide 25 MG TAB PO SCH (08:47)
[2021-12-23] MEDS: lisinopril 2.5 MG TAB PO SCH (08:47)
[2021-12-23] MEDS: RASPBERRY SYRUP 5 ML UDP PO SCH (08:48)
[2021-12-23] MEDS: ENOXAPARIN INJ 40 MG/0.4 ML SYR SQ SCH (08:48)
[2021-12-23] MEDS: METOPROLOL SUCC 25MG EXT REL TAB PO SCH (08:48)
[2021-12-23] MEDS: METHYLPHENIDATE HCL 10 MG TABLET PO SCH ×3 (08:58→18:29)
[2021-12-23] MEDS: VANCOMYCIN HCL 125 MG/2.5ML SOLN PO SCH (08:58)
[2021-12-23] MEDS ORDERED: METOCLOPRAMIDE HCL INJ 5 MG/ML 2 ML VIAL IV STA (14:27)
--- NOTE | 2021-12-23 16:23 | XRay Report ---
KUB HISTORY: Generalized abdominal pain COMPARISON: Abdomen and pelvis CT 12/19/2021. FINDINGS: The bowel gas pattern is unremarkable. There are no dilated loops of small bowel to suggest an obstruction. No renal calculi. No ureteral calculi. No pneumoperitoneum or pneumatosis. IMPRESSION: No evidence for bowel obstruction. ACT 112: Negative or not required by law. Electronically signed by: Haja Baker M.D. 12/23/2021 4:22 PM
--- NOTE | 2021-12-23 18:32 | Discharge Summary ---
Date of Service December 23, 2021 Admission HPI Per Admitting Provider CHIEF COMPLAINT: Abdominal pain. HISTORY OF PRESENT ILLNESS: A 66-year-old male with past medical history significant for hyperlipidemia, gout, hypertension, obesity, restless legs syndrome, chronic pain, lumbar radiculopathy, psoriasis, depression, attention deficit disorder comes with abdominal pain. The patient states since last one and half months, he is having abdominal pain. Diagnosed of C. diff, and he had his first course of antibiotics for C. diff, then he restarted second course 11 days ago with vancomycin taper. He says he was also prescribed metronidazole, but he says he was told to take metronidazole if first antibiotic is not working. Initially, he had some blood in the stool, but that has resolved. He is having loose stools once daily, but he is having a lot of abdominal pain, bloating, nausea, and not able to eat anything. Loss of appetite. He says he lost about 50 pounds since last one and a half months. He thinks something else is going on, so he came to the hospital to get evaluated. Denies any fever or chills. No chest pain, no shortness of breath. Currently, no blood in stools. Normal bladder movements. No swelling in the legs. Ambulating okay. He has had some brain fog because he thinks he is not eating much. Has some dizziness. No headache, no blurred visions, no earache, no runny nose, no sore throat, no difficulty swallowing. Currently in the ER, he had an episode of bradycardia, but looks like monitor might not be picking up some of the beats. Admission Exam Per Admitting Provider GENERAL: The patient is of moderate build, not in acute distress. VITAL SIGNS: Temperature 36.5, pulse 60, respiratory rate 18, blood pressure 134/78, oxygen 93% on room air. HEENT: Pupils equal, round and reactive to light. Oral mucosa moist. NECK: No JVD, no neck masses. CARDIOVASCULAR: S1 and S2 heard. Regular rate and rhythm. No murmur, no gallop. RESPIRATORY SYSTEM: Normal AP diameter. No accessory muscle use. No wheezing, no crackles. ABDOMEN: Soft, diffuse tenderness present. Guarding present, no distention. CENTRAL NERVOUS SYSTEM: Cranial nerves II-XII grossly intact, nonfocal. EXTREMITIES: No edema, no erythema. Principal Diagnosis Abdominal pain: C. difficile colitis Bradycardia: History of gout Hypertension Hyperlipidemia Discharge Exam General- No acute distress Head- atraumatic Eyes- PERRL, EOMI, ENT- oropharynx clear Neck- supple, no JVD Lungs- clear to auscultation Heart- regular rhythm; no murmur Abdomen- normal bowel sounds, +tenderness Extremities- no calf tenderness Neuro- alert, oriented x 3; PERRL, EOMI; no facial palsy; no dysarthria Skin- warm & dry Discharge Data Allergies Allergy/AdvReac Type Severity Reaction Status Date / Time No Known Allergies Allergy Verified 08/14/18 07:13 Consultations 12/19/21 23:33 ED Decision to Admit Stat 12/20/21 08:00 Consult Gastroenterology Routine Ordered Studies 12/19/21 20:33 CT abd pelvis IV con only Urgent KUB HISTORY: Generalized abdominal pain COMPARISON: Abdomen and pelvis CT 12/19/2021. FINDINGS: The bowel gas pattern is unremarkable. There are no dilated loops of small bowel to suggest an obstruction. No renal calculi. No ureteral calculi. No pneumoperitoneum or pneumatosis. IMPRESSION: No evidence for bowel obstruction. ACT 112: Negative or not required by law. Electronically signed by: Haja Baker M.D. 12/23/2021 4:22 PM Dictated:12/23/21 1621 Transcribed: 12/23/[address] SCAN OF THE ABDOMEN AND PELVIS WITH IV CONTRAST CLINICAL HISTORY: Generalized abdominal pain. Bloating. COMPARISON STUDY: Pelvic CT dated 07/25/2015. TECHNIQUE: Following the IV administration of 94 cc of Optiray 320, CT scan of the abdomen and pelvis is performed from the lung bases to the proximal femora. Images are reviewed in the axial, sagittal, and coronal planes. IV contrast was administered without complication. A dose lowering technique was utilized adhering to the principles of ALARA. CT DOSE: 934.04 mGy.cm FINDINGS: Lung bases: The heart is normal in size and without pericardial effusion. The coronary arteries are densely calcified. There is a tiny hiatal hernia. There is a punctate calcified granuloma in the left lower lobe. There are tiny nodules versus AVM is seen in the right lower lobe in image #25 and at the left lung base on image #63. The lung bases are otherwise clear noting dependent atelectasis. Liver: The contrast-enhanced liver is normal in size, contour, and attenuation. There is no intrahepatic biliary ductal dilatation. The hepatic veins and portal veins are patent. Gallbladder: Unremarkable. Spleen: Normal in size and attenuation. Pancreas: Unremarkable. Adrenal glands: Unremarkable. Kidneys: The contrast enhanced kidneys demonstrate mild cortical atrophy and are without hydronephrosis. The kidneys enhance symmetrically. A 1.8 cm cyst is seen in the left lower pole. Abdominal vasculature: The abdominal aorta is normal in course and caliber noting mild to moderate atherosclerotic calcification. Bowel: There is mild to moderate colonic fecal retention. No bowel obstruction is identified. The appendix is well-visualized and normal. Peritoneum: There is no intraperitoneal free air or abdominal ascites. Lymphadenopathy: None. Pelvic viscera: The prostate gland is mildly enlarged and heterogeneous noting median lobe hypertrophy. The bladder wall is thickened and trabeculated indicating chronic outlet obstruction. Skeletal structures: No lytic or blastic lesions are seen. There is mild lumbosacral spondylosis. IMPRESSION: 1. No acute infectious or inflammatory findings are identified in the abdomen or pelvis. 2. Prostatomegaly with evidence of chronic bladder outlet obstruction. 3. Advanced coronary artery calcification. 4. Additional findings as above. ACT 112: Negative or not required by law. Electronically signed by: Justin Evans M.D. 12/20/2021 8:57 AM Dictated:12/20/21 0850 Transcribed: 12/20/21 0850 XR abdomen 2V w PA chest CLINICAL HISTORY: abd pain c diff TECHNIQUE: 2 views of the abdomen were obtained. A single view of the chest was obtained. Comparison: Comparison is made to chest radiograph 07/08/2018 FINDINGS: No lines and tubes are seen. The cardiomediastinal silhouette is normal. The lungs are clear. No evidence of pleural effusion or pneumothorax. The osseous structures are grossly unremarkable. The bowel gas pattern is nonobstructive. A moderate amount of stool is noted within the large bowel. IMPRESSION: Nonobstructive bowel gas pattern. ACT 112: Negative or not required by law. Electronically signed by: Cornell Garces M.D. 12/19/2021 8:06 PM Dictated:12/19/212004 Transcribed: 12/19/212004 Hospital Course (1) Abdominal pain: (2) C. difficile colitis: Present on admission with diffuse abdominal pain Ct abd/pelvis showed no acute infectious or inflammatory findings are identified in the abdomen or pelvis. KUB showed Nonobstructive bowel gas pattern. Gastro on board recommended outpatient EGD and colonoscopy Case discussed with gastro that recommended to continue taper Vanco course Continue Bentyl 10mg TID diet advanced to low fiber as tolerated Follow up with gastro Continue pain control . Bradycardia: Asymptomatic Consider to decrease metoprolol to 12.5 mg daily if continue bradycardia Continue monitor CAD status post stent Continue aspirin, statin, and metoprolol succinate and Imdur.. History of gout Continue allopurinol. Hypertension BP stable Continue hydrochlorothiazide, Imdur, lisinopril, and metoprolol. ADHD Continue methylphenidate. Hyperlipidemia Continue statin. DVT px Continue Lovenox. Code status Full code Total Time Total Time Spent Total Time Spent (In Minutes): 35 minutes Discharge Plan Discharge Items Patient Disposition: Home - Self-Care Reason For Visit: ILLNESS Discharge Diagnosis: Abdominal pain: C. difficile colitis Bradycardia: History of gout Hypertension Hyperlipidemia Activity: Resume your previous activity Non-emergency contact: Primary Care Provider and Agriculture Worker Call non-emergency contact if: you have any medication questions Follow-up/Referrals: German Alfred MD [Physician] - 04/05/22 (EGD and Colonoscopy The GI office will call you with instructions for preparation and with the time for you to arrive. ) Rachelle Coronel PA-C [Primary Care Provider] - (Date & Time 12/29/2021 12:00 PM Provider Rachelle Coronel PA-C [facility] ) Diet: Gluten Free Addtl Attending Provider Instructions: Follow up with your primary care provider on 12/29/2021 @ 12:00 PM Rachelle Coronel PA-C [facility] Follow up with Gastroenterology Dr. Alfred on 04/05/22 for EGD and Colonoscopy The GI office will call you with instructions for preparation and with the time for you to arrive. Seek medical attention if your symptoms worsening Continue Vancomycin taper course Continue Vancomycin 125mg twice a day until 12/26; then Vancomycin 125mg daily starts on 12/27 for 7 days; then every other day for 14 days (start on 01/04 to 01/16) Pending Studies at Discharge: No Stand-Alone Forms: My [facility] [place], Smoking Cessation Medications and DC Order Prescriptions: New dicyclomine 10 mg Capsule 10 mg PO Q8 Qty: 30 RF: 0 Continued hydrochlorothiazide 25 mg Tablet 25 mg PO QAM RF: 0 lisinopril 2.5 mg tablet 2.5 mg PO DAILY RF: 0 isosorbide mononitrate 30 mg tablet extended release 24 hr 30 mg PO QAM RF: 0 atorvastatin 80 mg tablet 80 mg PO QDL RF: 0 metoprolol succinate 25 mg tablet extended release 24 hr 25 mg PO DAILY RF: 0 meloxicam 15 mg tablet 15 mg PO DAILY RF: 0 aspirin 81 mg Tablet,Delayed Release (Dr/Ec) 81 mg PO DAILY RF: 0 allopurinol 300 mg tablet 300 mg PO DAILY RF: 0 hydrocodone-acetaminophen 5-325 mg tablet 1 tab PO Q8H PRN (Reason: Pain) RF: 0 trazodone 100 mg tablet 100 - 150 mg PO HS PRN (Reason: Insomnia) RF: 0 methylphenidate HCl 20 mg tablet 20 mg PO .DAILY@AM & NOON RF: 0 methylphenidate HCl 20 mg tablet 10 mg PO .DAILY@4PM RF: 0 Probiotic 3 billion cell Capsule 0 mmu cells PO DAILY RF: 0 ondansetron HCl 4 mg tablet 4 mg PO Q8H PRN (Reason: Nausea) RF: 0 vancomycin 125 mg capsule 125 mg PO UD RF: 0 vancomycin 125 mg capsule 125 mg PO UD RF: 0 vancomycin 125 mg capsule 125 mg PO UD RF: 0 vancomycin 125 mg capsule 125 mg PO UD RF: 0 nitroglycerin 0.4 mg Tablet, Sublingual 0.4 mg sublingual .PRN/UD RF: 0 Discontinued metronidazole 500 mg tablet 500 mg PO TID RF: 0 Discharge Orders: Discharge Order (Routine); Ordered 12/23/21 Ordered By: Miguel Garland Admission Data Admit Date/Time: 12/20/21 01:07 Attending Provider: Miguel Garland Admit Provider: Guillermo Gonzáles Primary Care Provider: Rachelle Coronel Other Providers: Guillermo Gonzáles ; Albino Griggs Other Interventions: Discharge Summary Assessment (RN) Last Done: 12/23/21 18:37
[2021-12-27] MEDS ORDERED: RASPBERRY SYRUP 5 ML UDP PO SCH (09:00)
[2021-12-27] MEDS ORDERED: VANCOMYCIN HCL 125 MG/2.5ML SOLN PO SCH (09:00)
[2022-01-04] MEDS ORDERED: VANCOMYCIN HCL 125 MG/2.5ML SOLN PO SCH (09:00)
[2022-01-04] MEDS ORDERED: RASPBERRY SYRUP 5 ML UDP PO SCH (09:00)
== END 2021-12-23 19:00 | disposition home or self-care (01) | DRG 373 ==
LOC: ED 18:42 → 2W 12-20 01:07
DX: E78.5 Hyperlipidemia, unspecified; Z79.899 Other long term (current) drug therapy; I25.10 Atherosclerotic heart disease of native coronary artery without angina pectoris; G25.81 Restless legs syndrome; M10.9 Gout, unspecified; I10 Essential (primary) hypertension; F90.9 Attention-deficit hyperactivity disorder, unspecified type; Z20.822 Contact with and (suspected) exposure to COVID-19; N32.0 Bladder-neck obstruction; Z79.2 Long term (current) use of antibiotics; N40.1 Benign prostatic hyperplasia with lower urinary tract symptoms; Z87.891 Personal history of nicotine dependence; R00.1 Bradycardia, unspecified; Z79.82 Long term (current) use of aspirin; R63.4 Abnormal weight loss; A04.72 Enterocolitis due to Clostridium difficile, not specified as recurrent; Z79.1 Long term (current) use of non-steroidal anti-inflammatories (NSAID); Z95.5 Presence of coronary angioplasty implant and graft; E66.9 Obesity, unspecified; G89.29 Other chronic pain; I49.3 Ventricular premature depolarization; Z68.35 Body mass index [BMI] 35.0-35.9, adult